=== PATIENT | male | born 1980 | race Caucasian/White ===

== ENCOUNTER 2018-07-09 18:36 | Emergency (ER) | payer OTHER ==
[~2018-07-09] VITALS: Ht 188 cm; Wt 104.5 kg
[2018-07-09 19:27] LABS: HEMOGLOBIN 17.1 g/dL (13.5-18.0); MEAN CELL VOLUME 86 fl (78-100); MEAN CORPUSCULAR HEMOGLOBIN 30 pg (27-31); MEAN CORPUSCULAR HGB CONC 35 g/dL (33-37); MEAN PLATELET VOLUME 10.9 fl (7.4-10.4); PLATELET COUNT 278 K/mm3 (130-400); RED BLOOD COUNT 5.69 M/mm3 (4.20-5.60); RED CELL DISTRIBUTION WIDTH 12.7 % (11.5-14.5); WHITE BLOOD COUNT 19.8 K/mm3 (4.8-10.8)
[2018-07-09 19:33] LABS: ALBUMIN 5.4 g/dL (3.5-5.0); CALCIUM 10.9 mg/dL (8.4-10.2); POTASSIUM 3.7 mmol/L (3.6-5.0); TOTAL BILIRUBIN 0.9 mg/dL (0.2-1.3); TOTAL PROTEIN 8.9 g/dL (6.3-8.2)
[2018-07-09 19:52] LABS: LYMPHOCYTE 5 % (20-51); MONOCYTE 4 % (3-10); NEUTROPHILS 91 % (42-75)
[2018-07-09 23:34] VITALS: BP 146/82
== END 2018-07-10 00:04 | disposition short-term general hospital (02) ==
LOC: ED 18:36
PROVIDERS: Nurse Practitioner Primary Care
DX: K50.012 Crohn's disease of small intestine with intestinal obstruction (principal); Z79.1 Long term (current) use of non-steroidal anti-inflammatories (NSAID)
CPT/HCPCS: J2270; J2405; J2543; J7030

== ENCOUNTER 2021-02-19 23:26 | Emergency (ER) | payer OTHER ==
[~2021-02-19] VITALS: Ht 188 cm; Wt 106.8 kg
[2021-02-19] MEDS ORDERED: HUMIRA40 MG/0.5 SQ (23:48)
[2021-02-19] MEDS ORDERED: SYNTHROID RP0.088 MG PO (23:49)
[2021-02-20 00:30] LABS: BASO # 0.01 K/mm3 (0.02-0.10); EOS # 0.02 K/mm3 (0.04-0.40); EOS % 0.4 % (0.0-4.0); HEMATOCRIT 42.9 % (42.0-52.0); HEMOGLOBIN 14.8 g/dL (13.5-18.0); LYMPH# 0.68 K/mm3 (1.50-4.00); MEAN CELL VOLUME 89 fl (78-100); MEAN CORPUSCULAR HEMOGLOBIN 31 pg (27-31); MEAN CORPUSCULAR HGB CONC 35 g/dL (33-37); MEAN PLATELET VOLUME 10.2 fl (7.4-10.4); MONO # 0.56 K/mm3 (0.20-0.80); NEU # 3.29 K/mm3 (1.40-6.50); PLATELET COUNT 154 K/mm3 (130-400); RED BLOOD COUNT 4.81 M/mm3 (4.20-5.60); RED CELL DISTRIBUTION WIDTH 12.4 % (11.5-14.5); WHITE BLOOD COUNT 4.6 K/mm3 (4.8-10.8)
[2021-02-20 00:38] LABS: ALBUMIN 4.1 g/dL (3.5-5.0)
[2021-02-20 00:39] LABS: POTASSIUM 3.4 mmol/L (3.5-5.1)
[2021-02-20 00:40] LABS: CALCIUM 8.9 mg/dL (8.3-10.5)
[2021-02-20 00:43] LABS: TOTAL BILIRUBIN 0.7 mg/dL (0.2-1.2)
[2021-02-20] MEDS ORDERED: PROMETH-CODEIN 65 ML PO (01:16)
[2021-02-20] MEDS ORDERED: ZOFRAN ODT4 MG PO (01:16)
[2021-02-20] MEDS ORDERED: POTASSIUM CHLO20 ME4 PO (01:16)
[2021-02-20 01:40] VITALS: BP 130/83
== END 2021-02-20 01:40 | disposition home or self-care (01) ==
LOC: ED 23:26
PROVIDERS: Family Medicine
DX: U07.1 COVID-19 (principal); K50.00 Crohn's disease of small intestine without complications; K56.609 Unspecified intestinal obstruction, unspecified as to partial versus complete obstruction